=== PATIENT | female | born 1980 | race Caucasian/White ===

== ENCOUNTER → 2017-01-11 | Outpatient (REF) | payer OTHER | LOC: M SFHCWAGY 16:05 | PROVIDERS: ATTEND Nurse Practitioner Family | DX: Z12.4 Encounter for screening for malignant neoplasm of cervix (principal) ==

== ENCOUNTER → 2017-09-20 | Outpatient (REF) | payer BC ==
[2017-09-20 14:30] LABS: BASO # 0.1 10^3/uL (0.0-0.2); BASO % 0.9 % (0.0-1.0); EOS # 0.4 10^3/uL (0.0-0.50); EOS % 7.1 % (0.0-3.0); IMMATURE GRANULOCYTE % 0.2 % (0-0); LYMPH # 1.7 10^3/uL (1.5-4.5); LYMPH % 32.6 % (24.0-44.0); MEAN CORPUSCULAR HEMOGLOBIN 29.4 pg (27.0-33.0); MEAN CORPUSCULAR HGB CONC 33.5 g/dl (32.0-36.5); MEAN CORPUSCULAR VOLUME 87.7 fl (80.0-96.0); MONO # 0.4 10^3/uL (0.0-0.8); MONO % 8.2 % (0.0-5.0); NEUTROPHILS # 2.7 10^3/uL (1.8-7.7); PLATELET COUNT, AUTOMATED 306 10^3/uL (150-450); WHITE BLOOD COUNT 5.3 10^3/uL (4.0-10.0)
[2017-09-20 14:47] LABS: ALBUMIN 3.5 GM/DL (3.2-5.2); ALBUMIN/GLOBULIN RATIO 1.17 (1.00-1.93); ALKALINE PHOSPHATASE 47 U/L (45-117); ALT/SGPT 25 U/L (12-78); ANION GAP 8 MEQ/L (8-16); AST/SGOT 17 U/L (7-37); BILIRUBIN,TOTAL 0.4 MG/DL (0.2-1.0); BLOOD UREA NITROGEN 13 MG/DL (7-18); CALCIUM LEVEL 8.6 MG/DL (8.5-10.1); CARBON DIOXIDE LEVEL 25 MEQ/L (21-32); CHLORIDE LEVEL 104 MEQ/L (98-107); CHOLESTEROL LEVEL 249 MG/DL (<200); GLOMERULAR FILTRATION RATE > 60.0 (>60); GLUCOSE, FASTING 88 MG/DL (70-105); POTASSIUM SERUM 4.7 MEQ/L (3.5-5.1); SODIUM LEVEL 137 MEQ/L (136-145); TOTAL PROTEIN 6.5 GM/DL (6.4-8.2); TRIGLYCERIDES LEVEL 64 MG/DL (<150)
== END ==
LOC: M LABDRAW1 08:12
PROVIDERS: ATTEND Family Medicine
DX: Z00.00 Encounter for general adult medical examination without abnormal findings (principal)

== ENCOUNTER → 2018-05-13 | Outpatient (REF) | payer BC ==
[2018-05-13 13:55] LABS: CHLAMYDIA DNA AMPLIFICATION NEGATIVE (NEGATIVE); GC DNA AMPLIFICATION NEGATIVE (NEGATIVE)
== END ==
LOC: M SFHCWAGY 11:39
DX: Z11.3 Encounter for screening for infections with a predominantly sexual mode of transmission (principal)
CPT/HCPCS: 87591

== ENCOUNTER → 2018-05-13 | Outpatient (REF) | payer BC ==
[2018-05-17 15:28] LABS: HPV HYBRID CAPTURE II Negative (Negative)
== END ==
LOC: M SFHCWAGY 08:59
DX: Z12.4 Encounter for screening for malignant neoplasm of cervix (principal)

== ENCOUNTER → 2018-09-16 | Outpatient (REF) | payer BC ==
[2018-09-16 13:05] LABS: BASO % 0.6 % (0.0-1.0); EOS # 0.2 10^3/uL (0.0-0.50); EOS % 3.4 % (0.0-3.0); HEMATOCRIT 41.3 % (36.0-47.0); HEMOGLOBIN 13.7 g/dl (12.0-15.5); IMMATURE GRANULOCYTE % 0.2 % (0-3.0); LYMPH # 1.9 10^3/uL (1.5-4.5); LYMPH % 29.7 % (24.0-44.0); MEAN CORPUSCULAR HEMOGLOBIN 29.7 pg (27.0-33.0); MEAN CORPUSCULAR HGB CONC 33.2 g/dl (32.0-36.5); MEAN CORPUSCULAR VOLUME 89.6 fl (80.0-96.0); MONO # 0.6 10^3/uL (0.0-0.8); NEUTROPHILS # 3.6 10^3/uL (1.8-7.7); NEUTROPHILS % 57.1 % (36.0-66.0); PLATELET COUNT, AUTOMATED 318 10^3/uL (150-450); RED BLOOD COUNT 4.61 10^6/uL (4.00-5.40); RED CELL DISTRIBUTION WIDTH 11.8 % (11.5-14.5); WHITE BLOOD COUNT 6.2 10^3/uL (4.0-10.0)
[2018-09-16 13:42] LABS: CONTROL LINE MONO RF C INT CTR LINE PRESENT; MONO REFLEX EBV COMP NEGATIVE (NEGATIVE)
[2018-09-18 00:08] LABS: EBV VIRAL CAPSID AG IgM <36.0 U/mL (0.0-35.9)
== END ==
LOC: M LABDRWAD 12:38
DX: R59.0 Localized enlarged lymph nodes (principal)
CPT/HCPCS: 86665

== ENCOUNTER → 2020-11-09 | Outpatient (REF) | payer BC ==
[2020-11-09 16:45] LABS: HEMATOCRIT 38.5 % (36.0-47.0); MEAN CORPUSCULAR HGB CONC 33.8 g/dl (32.0-36.5); MEAN CORPUSCULAR VOLUME 88.9 fl (80.0-96.0); PLATELET COUNT, AUTOMATED 279 10^3/uL (150-450); RED BLOOD COUNT 4.33 10^6/uL (4.00-5.40)
[2020-11-09 18:06] LABS: HCG, SERUM QUANTITATIVE 134033 MIU/ML; HEPATITIS B SURFACE ANTIGEN NEGATIVE (NEGATIVE); HEPATITIS C VIRUS ABY INDEX 0.1 INDEX (<0.8); HIV 1&2 SCREEN CENTAUR NEGATIVE (NEGATIVE)
== END ==
LOC: M LAB REF 16:25
PROVIDERS: ATTEND Obstetrics & Gynecology
DX: Z32.01 Encounter for pregnancy test, result positive (principal)

== ENCOUNTER → 2020-11-17 | Outpatient (CLI) | payer BC ==
--- NOTE | 2020-11-17 16:08 | REP ---
INDICATION: DATING AND VIABILITY COMPARISON: None. TECHNIQUE: Transabdominal 1st trimester obstetrical ultrasound with color Doppler evaluation. FINDINGS: Single live early intrauterine is appreciated. Gestational sac with yolk sac and pole identified. Colton-rump length of 23 mm corresponds to 9 weeks 0 days gestational age with estimated date of delivery 06/22/2021. heart rate equals 172 beats per minute. Maternal ovaries demonstrate left corpus luteum cyst. IMPRESSION: Single live early intrauterine at 9 weeks 0 days gestational age. Complete anatomical assessment should be performed and 19-20 weeks. <Electronically signed by Foreign Mcdermott > 11/17/20 [id number]
== END ==
LOC: M PLAIMG 13:33
PROVIDERS: ATTEND Obstetrics & Gynecology
DX: O36.80X0 Pregnancy with inconclusive fetal viability, not applicable or unspecified (principal); Z3A.09 9 weeks gestation of pregnancy

== ENCOUNTER → 2021-02-06 | Outpatient (CLI) | payer BC ==
--- NOTE | 2021-02-06 16:53 | REP ---
INDICATION: ANATOMY. COMPARISON: Comparison study 17 November 2020.. TECHNIQUE: Transabdominal obstetric sonography. FINDINGS: Scanning through the gravid uterus demonstrates a viable single intrauterine gestation in cephalic lie. motion is observed and heart rate is recorded at 149 beats per minute. A anterior placenta is seen, grade 1, without evidence of placenta previa. Closed cervical length is measured at 3.5 cm transabdominally. No extrauterine abnormality is observed. Amniotic fluid is subjectively normal. The following anatomic structures are identified felt to be unremarkable: cranium and intracranial anatomy, facial profile, left ventricular cardiac outflow tract view, diaphragm, left-sided stomach, abdominal wall cord insertion, bilateral kidneys, urinary bladder, spine, upper and lower extremities, three-vessel cord. nose and lips, four-chamber heart, and right ventricular outflow tract views were less than optimally visualized due to position.. Biometry chart: BPD 4.7 cm, 20 weeks 0 days Head circumference 17.5 cm, 20 weeks 0 days Abdominal circumference 15.5 cm, 20 weeks 5 days Femur length 3.7 cm, 21 weeks 4 days Humeral length 3.3 cm, 21 weeks 1 day HC AC ratio normal 1.13 Cephalic index normal 0.73 Estimated weight 388 g, 0 lb 13 oz greater than 97th percentile for 19 weeks 6 days IMPRESSION: Viable single intrauterine gestation at 20 weeks 5 days by today's composite sonographic criteria. HERMELINDO by today's sonography June 21, 2021. No complication identified. Expected gestational age estimate based on prior sonography 19 weeks 6 days, HERMELINDO by prior sonography June 27, 2021. heart views and nose and lips visualization less than optimally achieved. <Electronically signed by Albert Tatum > 02/06/21 [id number]
== END ==
LOC: M WHC 09:00
PROVIDERS: ATTEND Obstetrics & Gynecology
DX: Z36.89 Encounter for other specified antenatal screening (principal); Z3A.20 20 weeks gestation of pregnancy

== ENCOUNTER → 2021-03-27 | Outpatient (CLI) | payer BC ==
[2021-03-27 11:45] LABS: HEMATOCRIT 33.7 % (36.0-47.0); HEMOGLOBIN 11.6 g/dl (12.0-15.5); MEAN CORPUSCULAR HEMOGLOBIN 31.5 pg (27.0-33.0); MEAN CORPUSCULAR HGB CONC 34.4 g/dl (32.0-36.5); MEAN CORPUSCULAR VOLUME 91.6 fl (80.0-96.0); PLATELET COUNT, AUTOMATED 204 10^3/uL (150-450); RED BLOOD COUNT 3.68 10^6/uL (4.00-5.40); WHITE BLOOD COUNT 14.1 10^3/uL (4.0-10.0)
== END ==
LOC: M LAB 09:50
PROVIDERS: ATTEND Obstetrics & Gynecology
DX: Z34.02 Encounter for supervision of normal first pregnancy, second trimester (principal)
CPT/HCPCS: 36415; 82950; 85027; 86850; 86901; J2790

== ENCOUNTER → 2021-05-23 | Outpatient (REF) | payer BC | LOC: M LAB REF 16:37 | PROVIDERS: ATTEND Obstetrics & Gynecology | DX: Z34.03 Encounter for supervision of normal first pregnancy, third trimester (principal); Z3A.00 Weeks of gestation of pregnancy not specified ==

== ENCOUNTER 2021-06-15 05:12 | Inpatient (IN) | payer BC ==
[2021-06-15] VITALS (34 sets, daily range): BP systolic 87–172; BP diastolic 48–97
[~2021-06-15] VITALS: Ht 154.9 cm; Wt 94.3 kg
[2021-06-15] MEDS ORDERED: PENICILLIN G POTASSIUM IV 5 MU in D5W MINI-BAG PLUS 100 ML IV STA (05:53)
[2021-06-15] MEDS ORDERED: LIDOCAINE 1% MDV 20ML VIAL INFIL PRN (05:55)
[2021-06-15] MEDS ORDERED: OXYTOCIN INJ 10 UNITS/ML VIAL (J2590) IM PRN (05:55)
[2021-06-15] MEDS ORDERED: METHYLERGONOVINE MALEATE 0.2 MG/ML VIAL (J2210) IM PRN (05:55)
[2021-06-15] MEDS ORDERED: OXYTOCIN DRIP 30 UNITS in IV 1 EA IV PRN (05:55)
[2021-06-15] MEDS: LR 1,000 ML IV SCH ×2 (06:30→19:35)
--- NOTE | 2021-06-15 06:41 | HPE ---
HISTORY AND PHYSICAL DATE OF ADMISSION: 06/15/2021 HISTORY OF PRESENT ILLNESS: Doris is a 41-year-old 1 para 0 at 39 weeks gestation, EDC of 06/22/2021 based on first trimester ultrasound. She presents to Labor and Delivery today with report of uncomfortable contractions that started at 1999 on 06/14/2021, progressively had become closer together and more uncomfortable. She does report some scant bloody show, denies leakage of fluid and the fetus has been active. Her care was initiated at [facility] in the first trimester. Her course was complicated by advanced maternal age. OBSTETRIC HISTORY: Primigravida. OBSTETRIC LABS: AB negative, antibody screen negative, rubella immune, VDRL non-reactive. Urine culture showed no growth. Hepatitis surface antigen negative, HIV negative, hepatitis C antibody nonreactive. Pap smear was normal. Gonorrhea and chlamydia negative. Gestational diabetic screening normal at 42. GBS is positive. It does not appear she had any NIPT done related to advanced maternal age. PAST MEDICAL HISTORY: Anxiety. PAST SURGICAL HISTORY: Diaphragmatic hernia repair. FAMILY HISTORY: Noncontributory. SOCIAL HISTORY: She is . The father of the baby is at bedside. She is a nonsmoker. Denies alcohol and drug use. No history of any sexually transmitted infections. She denies a history of abuse, physical, sexual or emotional. ALLERGIES: No known drug allergies. CURRENT MEDICATIONS: 1. Sertraline 50 mg daily. 2. vitamin. OBJECTIVE: Temperature 98.4, pulse 78, respirations 18, BP 129/79. She is alert and oriented x3. She does appear moderately uncomfortable with her contractions. She is deep breathing. heart rate is 150 with moderate variability, positive accelerations, negative decelerations. Contractions every three minutes, they do palpate moderate. Her abdomen is gravid, cephalic presentation. Estimated weight is 8 pounds. Sterile vaginal exam: 3 cm dilated, 90% effaced, -2 station. ASSESSMENT: Intrauterine at 39 weeks, heart rate category 1, active labor. PLAN: Admit the patient to Labor and Delivery, out of bed ad jemima, regular diet at this time. The patient desires to cope with her labor physiologically at this point but will likely consider an epidural when she is more uncomfortable. Routine laboratories have been ordered, out of bed ad jemima. She has been verbally consented for emergency surgery and blood products if they are necessary. I do anticipate active labor continued and a spontaneous vaginal delivery.
[2021-06-15 06:59] LABS: HEMATOCRIT 33.8 % (36.0-47.0); HEMOGLOBIN 11.7 g/dl (12.0-15.5); MEAN CORPUSCULAR HGB CONC 34.6 g/dl (32.0-36.5); MEAN CORPUSCULAR VOLUME 89.7 fl (80.0-96.0); PLATELET COUNT, AUTOMATED 160 10^3/uL (150-450); RED BLOOD COUNT 3.77 10^6/uL (4.00-5.40); WHITE BLOOD COUNT 15.5 10^3/uL (4.0-10.0)
[2021-06-15] MEDS: PENICILLIN G POTASSIUM IV 2.5 MU in IV 1 EA IV SCH ×3 (10:51→19:35)
--- NOTE | 2021-06-15 12:51 | IPNPDOC ---
Text Note Date of Service The patient was seen on 06/15/21. NOTE Intrapartum Note I assumed care of Doris this morning at 0730. In brief, she is a 41yo with SIUP at term presenting in active labor early this morning. Ctx started last nig ht. She has been laboring without pain meds this morning, has been in the tub a couple of times. Coping well with ctx but interested in getting epidural soon potentially. Vitals: normotensive to occasional mild range bp's, afebrile Abdomen: soft/gravid Cat I FHRT with bl 140's, +accels, -decels, mod nere[place]: ctx q4-5min SCE: 5/80/-2, soft/mid. AROM performed with thick meconium noted. Plan to continue expectant management for now Epidural as desired Close observation Dr. Galloway notified of presence of meconium Safe to proceed Светлана Pace MD VS,David, I+O VS, David I+O Laboratory Tests 06/15/21 06:30 Vital Signs Date Time Temp Pulse Resp B/P (MAP) Pulse Ox O2 Delivery O2 Flow Rate FiO2 06/15/21 12:12 98.1 75 20 144/66 (92) Room Air Светлана Pace MD Jun 15, 2021 12:51
[2021-06-15] MEDS ORDERED: FENTANYL 2MCG/ML ROPIVACAINE 0.2% IN 0.9% NACL 100ML IVBAG As Ordered ONE (13:46)
[2021-06-15] MEDS: FENTANYL/ROPIVACAINE/NACL BAG 100 ML EPIDURAL SCH (13:54)
[2021-06-15] MEDS ORDERED: NALOXONE INJ 0.4MG/1ML VIAL (J2310 PER 1MG) IV PRN (14:25)
[2021-06-15] MEDS ORDERED: REFRIGERATOR IV KEYS XX PRN (14:25)
[2021-06-15] MEDS ORDERED: ONDANSETRON 4MG/2ML VIAL IV PRN (14:25)
[2021-06-15] MEDS ORDERED: EPIDURAL COMMENT XX SCH (14:25)
[2021-06-15] MEDS ORDERED: EPIDURAL/PCA KEYS XX PRN (14:25)
[2021-06-15] MEDS ORDERED: LACTATED RINGER'S 1000 ML IV PRN (14:25)
[2021-06-15] MEDS ORDERED: diphenhydrAMINE 50MG/ML VIAL (J1200) IV PRN (14:25)
[2021-06-15] MEDS: ePHEDrine SULFATE 25 MG/5 ML(5MG/ML) SYRINGE IV PRN ×2 (15:34→18:09)
[2021-06-15] MEDS ORDERED: BICITRA 30ML SOLN UDC PO ONE (15:45)
[2021-06-15] MEDS ORDERED: CALCIUM CARBONATE 500 MG CHEW U/D PO PRN (15:45)
--- NOTE | 2021-06-15 17:33 | IPNPDOC ---
Text Note Date of Service The patient was seen on 06/15/21. NOTE Intrapartum Note Pt doing well. Pain controlled with epidural. Has had new bloody show Vitals: normotensive, afebrile Cat I FHRT with bl 130's, +accels, -decels, mod nereida [place]: ctx q3-4min SCE: 8/80/-1, soft/mid. Plan to continue expectant management Close observation Recheck in 2-4hr or earlier as indicated Safe to proceed Светлана Pace MD VS,Dvaid, I+O VSDavid I+O Laboratory Tests 06/15/21 06:30 Vital Signs Date Time Temp Pulse Resp B/P (MAP) Pulse Ox O2 Delivery O2 Flow Rate FiO2 06/15/21 16:46 108 105/59 (74) 06/15/21 15:08 98.6 18 06/15/21 12:12 Room Air Светлана Pace MD Jun 15, 2021 17:33
[2021-06-15] MEDS ORDERED: OXYTOCIN DRIP 30 UNITS in IV 1 EA IV SCH ×2 (18:20→23:20)
--- NOTE | 2021-06-15 23:19 | DNPDOC ---
[facility] Delivery Note Delivery Note DATE OF DELIVERY: 06/15/21 PREDELIVERY DIAGNOSIS: 39w0d gestation and labor. POST DELIVERY DIAGNOSIS: Delivered. PROCEDURE: Spontaneous vaginal delivery [employer] REPRESENTATIVE: Dr. Светлана Pace MD ANESTHESIA: epidural ESTIMATED BLOOD LOSS: 300 mL. FINDINGS: 8 pound 0 ounce (3630g) female , Score 7/9 DELIVERY SUMMARY: Doris is a 41yo [id number] s/p uncomplicated at 39w0d when presenting with labor, delivering at 2228 on 06/18/21. She was 4cm on presentation. She had AROM with meconium noted. Received an epidural. She slowly progressed over time to C/ C/0 with pitocin augmentation, and then began pushing. Eventually head delivered OA, restituted KATHY. Right anterior shoulder delivered followed by posterior shoulder and corpus. vigorous, placed on maternal abdomen, apgars 7/9. Given that infant did not immediately have a lusty cry, cord was clamped x2 and cut by FOB and was taken to warmer by the nurse. With fu ndal massage and traction on cord, placenta delivered spontaneously with centrally inserted 3 vessel umbilical cord. Pitocin bolused via IV and more uterine massage performed, fundus noted firm at u-2cm. 0.2mg methergine given IM for prophylaxis against bleeding since patient had been laboring for >24hr and maternal age. Inspection of perineum and vagina revealed a small 2mll and s mall/superficial bilateral labial abrasions which were repaired in routine fashion. Excellent reapproximation and total hemostasis noted. All counts correct x2. Mom and infant were doing well when I left the room. MD Katelynn Francisco Katrina D MD Jun 15, 2021 23:19
[2021-06-15] MEDS ORDERED: MEASLES,MUMPS,RUBELLA VACCINE INJ (MMR-II) (90707) SC SCH (23:20)
[2021-06-15] MEDS ORDERED: RHOGAM 300 MCG (1500 IU) INJ (J2790) IM SCH (23:20)
[2021-06-15] MEDS ORDERED: IBUPROFEN 600MG TAB PO PRN (23:20)
[2021-06-15] MEDS ORDERED: DIBUCAINE 1% OINTMENT 30GM TOP PRN (23:20)
[2021-06-15] MEDS ORDERED: ACETAMINOPHEN TAB 650MG DOSE (2X325MG) PO PRN (23:20)
[2021-06-16] MEDS: IBUPROFEN 800 MG TAB PO PRN ×2 (00:46→18:40)
[2021-06-16] MEDS: DOCUSATE SODIUM 100MG CAPSULE PO PRN ×2 (00:46→22:39)
[2021-06-16 01:15] VITALS: BP 147/75
[2021-06-16] MEDS: FENTANYL/ROPIVACAINE/NACL BAG 100 ML EPIDURAL SCH (05:08)
[2021-06-16 06:00] VITALS: BP 121/70
--- NOTE | 2021-06-16 06:14 | IPNPDOC ---
Progress Note Date of Service: Jun 16, 2021 Day#: 1 Progress Note PPD 1 SUBJECT: Doris is a 41yo [id number] s/p uncomplicated at 39w0d when presenting with labor, delivering at 2228 on 06/18/21, doing well day # 1. She has been ambulating, voiding spontaneously without issue and tolerating regular diet. Breast feeding without issue. Reports lochia is like a normal period. OBJECTIVE: VITAL SIGNS: Within normal limits, afebrile. Alert and oriented times three. Abdomen: Fundus firm at U-2. Soft, NTTP. Extremities: no pain with palpation of calves ASSESSMENT: Doris is a 41yo [id number] s/p uncomplicated at 39w0d when presenting with labor, delivering at 2228 on 06/18/21, doing well day # 1. Vitals within normal limits, afebrile, hemodynamically stable with no evidence of infection. PLAN: 1. Routine care 2. Tylenol and Motrin for pain. 3. Encourage breast feeding and ambulation. 4. Regular diet 5. Vitals q4hr 6. Possible discharge tomorrow if meeting all milestones Светлана Pace MD VS, [facility]&O, [facility]/I&O Vital Signs Date Time Temp Pulse Resp B/P (MAP) Pulse Ox O2 Delivery O2 Flow Rate FiO2 06/16/21 06:00 97.9 83 16 121/70 (87) 97 Room Air I&O- Last 24 Hours up to 6 AM 06/16/21 06:00 Intake Total 600 ml Output Total 2200 ml Balance -1600 ml Laboratory Data 24H LABS Laboratory Tests 2 06/15/21 06:30: Nucleated Red Blood Cells % (auto) 0.0, Syphilis Serology NONREACTIVE CBC/BMP Laboratory Tests 06/15/21 06:30 Светлана Pace MD Jun 16, 2021 06:14
[2021-06-16] MEDS: PRENATAL VITAMINS CHEWABLE TABLET PO SCH (08:15)
[2021-06-16 18:49] VITALS: BP 113/62
[2021-06-16] MEDS: ACETAMINOPHEN 500 MG TAB PO PRN (22:40)
[2021-06-17] MEDS: IBUPROFEN 800 MG TAB PO PRN (05:41)
[2021-06-17 06:22] VITALS: BP 134/89
[2021-06-17] MEDS: PRENATAL VITAMINS CHEWABLE TABLET PO SCH (08:30)
[2021-06-17] MEDS: ACETAMINOPHEN 500 MG TAB PO PRN (08:30)
== END 2021-06-17 12:00 | disposition home or self-care (01) | DRG 560 ==
LOC: M LDO 05:12 → M LDI 05:53 → M OBS 06-16 00:34
PROVIDERS: ADMIT Advanced Practice Midwife; ATTEND Advanced Practice Midwife
PROC: 10E0XZZ Delivery of Products of Conception, External Approach (ICD-10-PCS; principal; 2021-06-15)
PROC: 0KQM0ZZ Repair Perineum Muscle, Open Approach (ICD-10-PCS; 2021-06-15)
PROC: 10907ZC Drainage of Amniotic Fluid, Therapeutic from Products of Conception, Via Natural or Artificial Opening (ICD-10-PCS; 2021-06-15)
PROC: 0HQ9XZZ Repair Perineum Skin, External Approach (ICD-10-PCS; 2021-06-15)
DX: O77.0 Labor and delivery complicated by meconium in amniotic fluid (principal); Z3A.39 39 weeks gestation of pregnancy; Z37.0 Single live birth; O70.1 Second degree perineal laceration during delivery; O70.0 First degree perineal laceration during delivery; O99.824 Streptococcus B carrier state complicating childbirth

== ENCOUNTER → 2022-04-18 | Outpatient (CLI) | payer BC ==
[2022-04-18 13:43] LABS: BASO # 0.1 10^3/uL (0.0-0.2); BASO % 0.3 % (0.0-1.0); EOS % 0.1 % (0.0-3.0); HEMATOCRIT 43.5 % (36.0-47.0); HEMOGLOBIN 14.5 g/dl (12.0-15.5); LYMPH # 2.3 10^3/uL (1.5-5.0); LYMPH % 10.3 % (24.0-44.0); MEAN CORPUSCULAR HEMOGLOBIN 29.2 pg (27.0-33.0); MEAN CORPUSCULAR HGB CONC 33.3 g/dl (32.0-36.5); MEAN CORPUSCULAR VOLUME 87.7 fl (80.0-96.0); MONO % 7.9 % (2.0-8.0); NEUTROPHILS # 17.6 10^3/uL (1.5-8.5); NEUTROPHILS % 80.8 % (36.0-66.0); PLATELET COUNT, AUTOMATED 359 10^3/uL (150-450); RED BLOOD COUNT 4.96 10^6/uL (4.00-5.40); WHITE BLOOD COUNT 21.8 10^3/uL (4.0-10.0)
[2022-04-18 14:14] LABS: MONO # 1.7 10^3/uL (0.0-0.8)
[2022-04-18 14:27] LABS: ALBUMIN 3.9 GM/DL (3.2-5.2); ALT/SGPT 29 U/L (12-78); BILIRUBIN,TOTAL 0.6 MG/DL (0.2-1.0); BLOOD UREA NITROGEN 12 MG/DL (7-18); CALCIUM LEVEL 9.2 MG/DL (8.5-10.1); CARBON DIOXIDE LEVEL 27 MEQ/L (21-32); CHLORIDE LEVEL 104 MEQ/L (98-107); CREATININE FOR GFR 1.02 MG/DL (0.55-1.30); GLOMERULAR FILTRATION RATE > 60.0 (>58); GLUCOSE, FASTING 108 MG/DL (70-100); SODIUM LEVEL 136 MEQ/L (136-145); TOTAL PROTEIN 7.5 GM/DL (6.4-8.2)
== END ==
LOC: M PLALAB 11:22
PROVIDERS: ATTEND Nurse Practitioner Family
DX: R11.10 Vomiting, unspecified (principal)

== ENCOUNTER 2022-04-20 09:04 | Emergency (ER) | payer BC ==
[~2022-04-20] VITALS: Ht 154.9 cm; Wt 81.8 kg
[2022-04-20] MEDS ORDERED: SERT50TA29 (09:14)
[2022-04-20] MEDS ORDERED: NS 1,000 ML IV ONE (10:05)
[2022-04-20 10:34] LABS: BASO # 0.1 10^3/uL (0.0-0.2); BASO % 0.7 % (0.0-1.0); EOS # 0.2 10^3/uL (0.0-0.5); EOS % 1.5 % (0.0-3.0); HEMATOCRIT 39.7 % (36.0-47.0); HEMOGLOBIN 13.8 g/dl (12.0-15.5); LYMPH # 2.6 10^3/uL (1.5-5.0); LYMPH % 18.3 % (24.0-44.0); MEAN CORPUSCULAR HEMOGLOBIN 30.2 pg (27.0-33.0); MEAN CORPUSCULAR HGB CONC 34.8 g/dl (32.0-36.5); MEAN CORPUSCULAR VOLUME 86.9 fl (80.0-96.0); MONO % 7.2 % (2.0-8.0); NEUTROPHILS # 10.3 10^3/uL (1.5-8.5); PLATELET COUNT, AUTOMATED 290 10^3/uL (150-450); RED BLOOD COUNT 4.57 10^6/uL (4.00-5.40); WHITE BLOOD COUNT 14.4 10^3/uL (4.0-10.0)
[2022-04-20 10:46] LABS: INR 0.92; PARTIAL THROMBOPLASTIN TIME 25.8 SECONDS (25.9-37.0); PROTHROMBIN TIME 12.8 SECONDS (12.7-14.5)
[2022-04-20 11:16] LABS: ALBUMIN 3.4 GM/DL (3.2-5.2); ALT/SGPT 21 U/L (12-78); BILIRUBIN,DIRECT 0.1 MG/DL (0.0-0.2); BILIRUBIN,TOTAL 0.6 MG/DL (0.2-1.0); BLOOD UREA NITROGEN 9 MG/DL (7-18); CALCIUM LEVEL 8.6 MG/DL (8.5-10.1); CARBON DIOXIDE LEVEL 24 MEQ/L (21-32); CHLORIDE LEVEL 107 MEQ/L (98-107); GLOMERULAR FILTRATION RATE > 60.0 (>58); GLUCOSE, FASTING 77 MG/DL (70-100); LIPASE 101 U/L (73-393); POTASSIUM SERUM 3.8 MEQ/L (3.5-5.1); SODIUM LEVEL 138 MEQ/L (136-145)
[2022-04-20] MEDS ORDERED: ISOVUE-370 76% 100ML VIAL As Ordered ONE (11:47)
[2022-04-20 13:27] VITALS: BP 108/66
== END 2022-04-20 13:41 | disposition home or self-care (01) ==
LOC: M ED 09:04
DX: A09 Infectious gastroenteritis and colitis, unspecified (principal); K44.9 Diaphragmatic hernia without obstruction or gangrene
CPT/HCPCS: 74177; 80048; 80076; 83690; 84702; 85025; 85610; 85730; 86850; 86900; 86901; 96360; 96361; 99284; Q9967

== ENCOUNTER → 2022-04-26 | Outpatient (REF) | payer BC ==
[~2022-04-26] MED LIST: SERT50TA29
== END ==
LOC: M LAB REF 15:44
PROVIDERS: ATTEND Physician Assistant Medical
DX: R19.7 Diarrhea, unspecified (principal)

== ENCOUNTER → 2022-06-08 | Outpatient (REF) | payer BC | LOC: M SFHCDERM 16:54 | PROVIDERS: ATTEND Dermatology | DX: D23.71 Other benign neoplasm of skin of right lower limb, including hip (principal) ==

== ENCOUNTER → 2023-02-21 | Outpatient (CLI) | payer BC ==
[2023-02-21 14:58] LABS: BASO # 0.1 10^3/uL (0.0-0.2); BASO % 0.8 % (0.0-1.0); EOS # 0.4 10^3/uL (0.0-0.5); EOS % 4.4 % (0.0-3.0); HEMATOCRIT 42.8 % (36.0-47.0); HEMOGLOBIN 13.9 g/dl (12.0-15.5); LYMPH # 2.2 10^3/uL (1.5-5.0); LYMPH % 27.4 % (24.0-44.0); MEAN CORPUSCULAR HGB CONC 32.5 g/dl (32.0-36.5); MEAN CORPUSCULAR VOLUME 89.2 fl (80.0-96.0); MONO # 0.6 10^3/uL (0.0-0.8); MONO % 7.6 % (2.0-8.0); NEUTROPHILS # 4.7 10^3/uL (1.5-8.5); NEUTROPHILS % 59.4 % (36.0-66.0); PLATELET COUNT, AUTOMATED 304 10^3/uL (150-450); WHITE BLOOD COUNT 7.9 10^3/uL (4.0-10.0)
[2023-02-21 15:02] LABS: ALBUMIN 3.9 G/DL (3.2-5.2); ALKALINE PHOSPHATASE 74 U/L (46-116); ALT/SGPT 24 U/L (7.0-40); AST/SGOT 13 U/L (<34); BILIRUBIN,TOTAL 0.5 MG/DL (0.3-1.2); BLOOD UREA NITROGEN 12 MG/DL (9-23); CALCIUM LEVEL 8.9 MG/DL (8.5-10.1); CARBON DIOXIDE LEVEL 27 MMOL/L (20-31); CHLORIDE LEVEL 104 MMOL/L (98-107); CHOLESTEROL LEVEL 261 MG/DL (<200); CHOLESTEROL RISK RATIO 4.52 (<5); CREATININE FOR GFR 0.82 MG/DL (0.55-1.30); GLOMERULAR FILTRATION RATE > 60.0 (>58); GLUCOSE, FASTING 92 MG/DL (60-100); HDL CHOLESTEROL 57.7 MG/DL (>40); LDL CHOLESTEROL 185.3 MG/DL (<100); NON-HDL-C 203.3 MG/DL; POTASSIUM SERUM 4.3 MMOL/L (3.5-5.1); SODIUM LEVEL 137 MMOL/L (136-145); TOTAL PROTEIN 6.7 G/DL (5.7-8.2); TRIGLYCERIDES LEVEL 90 MG/DL (<150)
[2023-02-21 15:04] LABS: THYROID STIMULATING HORMONE 2.295 uIU/ML (0.55-4.78)
[2023-02-21 15:05] LABS: FREE T4 0.73 NG/DL (0.89-1.76)
== END ==
LOC: M WUC 08:57
PROVIDERS: ATTEND Nurse Practitioner Family
DX: Z00.00 Encounter for general adult medical examination without abnormal findings (principal); E66.9 Obesity, unspecified

== ENCOUNTER → 2023-02-27 | Outpatient (REF) | payer BC ==
[2023-02-27 13:12] LABS: APPEARANCE, URINE CLOUDY (CLEAR); BACTERIA, URINE AUTO 1+ (NEGATIVE); BILIRUBIN, URINE AUTO NEGATIVE (NEGATIVE); BLOOD, URINE BLOOD 3+ (NEGATIVE); COLOR, URINE AMBER (YELLOW); GLUCOSE, URINE (UA) AUTO NEGATIVE (NEGATIVE); KETONE, URINE AUTO TRACE mg/dL (NEGATIVE); LEUKOCYTE ESTERASE, URINE AUTO 1+ (NEGATIVE); MUCUS, URINE SMALL (NEGATIVE); NITRITE, URINE AUTO NEGATIVE (NEGATIVE); PROTEIN, URINE AUTO 2+ mg/dL (NEGATIVE); RBC, URINE AUTO TNTC /HPF (0-3); SPECIFIC GRAVITY URINE AUTO 1.026 (1.002-1.035); SQUAMOUS EPITHELIAL CELL UR AU 8 /HPF (0-6); TRANSITIONAL EPITHELIAL AUTO 3 /HPF; UROBILINOGEN, URINE AUTO 0.2 mg/dL (0.0-2.0); WBC, URINE AUTO 79 /HPF (0-3)
== END ==
LOC: M LAB REF 12:21
PROVIDERS: ATTEND Physician Assistant
DX: N39.0 Urinary tract infection, site not specified (principal)

== ENCOUNTER → 2023-05-21 | Outpatient (REF) | payer BC | LOC: M SFHCWAGY 17:25 | PROVIDERS: ATTEND Nurse Practitioner Family | DX: Z12.4 Encounter for screening for malignant neoplasm of cervix (principal); R87.615 Unsatisfactory cytologic smear of cervix; R87.618 Other abnormal cytological findings on specimens from cervix uteri ==

== ENCOUNTER → 2023-06-12 | Outpatient (REF) | payer BC | LOC: M SFHCWAGY 13:12 | PROVIDERS: ATTEND Nurse Practitioner Family | DX: R87.610 Atypical squamous cells of undetermined significance on cytologic smear of cervix (ASC-US) (principal); Z12.4 Encounter for screening for malignant neoplasm of cervix; R87.615 Unsatisfactory cytologic smear of cervix ==

== ENCOUNTER → 2023-10-11 | Outpatient (CLI) | payer BC | LOC: M WHC 10:20 | PROVIDERS: ATTEND Nurse Practitioner Family | DX: Z12.31 Encounter for screening mammogram for malignant neoplasm of breast (principal) ==

== ENCOUNTER → 2023-10-17 | Outpatient (CLI) | payer BC | LOC: M WHC 09:03 | PROVIDERS: ATTEND Nurse Practitioner Family | DX: R92.8 Other abnormal and inconclusive findings on diagnostic imaging of breast (principal); N63.11 Unspecified lump in the right breast, upper outer quadrant ==

== ENCOUNTER 2023-11-15 06:14 | Day surgery (SDC) | payer BC ==
[~2023-11-15] VITALS: Ht 154.9 cm; Wt 88.1 kg
[~2023-11-15 06:14] MED LIST changes: +LR 1,000 ML IV SCH; -SERT50TA29; +SERT50TA29 PO
[2023-11-15] MEDS ORDERED: LR 1,000 ML IV SCH ×2 (06:45→08:45)
[2023-11-15] MEDS ORDERED: KETOROLAC 60MG 2ML VIAL As Ordered ONE (06:56)
[2023-11-15] MEDS ORDERED: ONDANSETRON 4MG 2ML VIAL As Ordered ONE (06:56)
[2023-11-15] MEDS ORDERED: propofoL 200 MG/20 ML VIAL As Ordered ONE (06:57)
[2023-11-15] MEDS ORDERED: SUGAMMADEX SODIUM 500 MG/5 ML VIAL (BRIDION) As Ordered ONE (06:57)
[2023-11-15] MEDS ORDERED: ROCURONIUM BROMIDE 50MG/5ML VIAL As Ordered ONE (06:57)
[2023-11-15] MEDS ORDERED: LIDOCAINE 2% 100MG/5ML SDV (FOR ANES.) As Ordered ONE (06:57)
[2023-11-15 07:02] LABS: HEMATOCRIT 40.7 % (36.0-47.0); HEMOGLOBIN 13.8 g/dl (12.0-15.5); MEAN CORPUSCULAR HEMOGLOBIN 29.7 pg (27.0-33.0); MEAN CORPUSCULAR HGB CONC 33.9 g/dl (32.0-36.5); MEAN CORPUSCULAR VOLUME 87.5 fl (80.0-96.0); PLATELET COUNT, AUTOMATED 286 10^3/uL (150-450); RED BLOOD COUNT 4.65 10^6/uL (4.00-5.40); WHITE BLOOD COUNT 6.6 10^3/uL (4.0-10.0)
[2023-11-15] MEDS ORDERED: MIDAZOLAM INJ 2MG/2ML VIAL As Ordered ONE (07:04)
[2023-11-15] MEDS ORDERED: fentaNYL 100 MCG/2 ML INJECTION As Ordered ONE (07:04)
[2023-11-15 07:10] LABS: HCG, SERUM QUALITATIVE NEGATIVE (NEGATIVE)
[2023-11-15] MEDS ORDERED: ACETAMINOPHEN 1000MG 100ML IV BAG As Ordered ONE (07:53)
[2023-11-15] MEDS ORDERED: ONDANSETRON 4MG 2ML VIAL IV PRN (08:45)
[2023-11-15] MEDS ORDERED: fentaNYL 100 MCG/2 ML INJECTION IV PRN (08:45)
[2023-11-15] MEDS ORDERED: HYDROMORPHONE HCL 0.5 MG/ 0.5 ML SYRINGE IV PRN (08:45)
[2023-11-15] MEDS ORDERED: oxyCODONE 5MG TAB PO PRN (08:45)
[2023-11-15] MEDS ORDERED: IBUP80TA PO (08:48)
[2023-11-15] MEDS ORDERED: PERC5TAB12 PO (08:49)
[2023-11-15] MEDS ORDERED: COLA100C5 PO (08:50)
[2023-11-15 11:09] VITALS: BP 105/60; TEMP 97.2; O2SAT 98
== END 2023-11-15 11:05 | disposition home or self-care (01) ==
LOC: M SDC 06:14
PROVIDERS: ATTEND Obstetrics & Gynecology
DX: Z30.2 Encounter for sterilization (principal); Z88.0 Allergy status to penicillin; Z91.040 Latex allergy status; F41.9 Anxiety disorder, unspecified; F32.A Depression, unspecified; Z79.899 Other long term (current) drug therapy
CPT/HCPCS: 36415; 58661; 84703; 85027; 86850; 86900; 86901; 88302; J0131; J0665; J1100; J1885; J2250; J2405; J3010

== ENCOUNTER 2023-11-24 09:00 | Emergency (ER) | payer BC ==
[~2023-11-24] VITALS: Ht 154.9 cm; Wt 89.8 kg
[~2023-11-24 09:00] MED LIST changes: +COLA100C5 PO; +IBUP80TA PO; -LR 1,000 ML IV SCH; +PERC5TAB12 PO
[2023-11-24] MEDS ORDERED: METH4PACK PO (09:08)
[2023-11-24] MEDS ORDERED: FLUC150T9 (09:09)
[2023-11-24] MEDS ORDERED: FAMOTIDINE 20MG/2ML VIAL IVP ONE (09:25)
[2023-11-24] MEDS ORDERED: methylPREDNISolone 125MG 2ML VIAL IV ONE (09:25)
[2023-11-24] MEDS ORDERED: PRED20TA PO (09:43)
[2023-11-24] MEDS ORDERED: PEPC1TAB5 PO (09:45)
[2023-11-24 10:08] VITALS: BP 109/69; TEMP 97.6; O2SAT 97
== END 2023-11-24 10:15 | disposition home or self-care (01) ==
LOC: M ED 09:00
DX: T78.40XA Allergy, unspecified, initial encounter (principal); F41.9 Anxiety disorder, unspecified; F32.A Depression, unspecified; Z88.1 Allergy status to other antibiotic agents; Z91.040 Latex allergy status; Z79.52 Long term (current) use of systemic steroids; Z79.899 Other long term (current) drug therapy
CPT/HCPCS: 96374; 99284; J2930; S0028

== ENCOUNTER → 2025-03-22 | Outpatient (CLI) | payer BC ==
[~2025-03-22] MED LIST changes: +FLUC150T9; +METH4PACK PO; +PEPC1TAB5 PO; +PRED20TA PO
[2025-03-22 12:35] LABS: BASO # 0.1 10^3/uL (0.0-0.2); BASO % 0.6 % (0.0-1.0); EOS # 0.5 10^3/uL (0.0-0.5); EOS % 6.2 % (0.0-3.0); HEMATOCRIT 43.6 % (36.0-47.0); HEMOGLOBIN 14.4 g/dl (12.0-15.5); LYMPH # 2.3 10^3/uL (1.5-5.0); LYMPH % 29.4 % (24.0-44.0); MEAN CORPUSCULAR HEMOGLOBIN 28.9 pg (27.0-33.0); MEAN CORPUSCULAR VOLUME 87.4 fl (80.0-96.0); MONO # 0.7 10^3/uL (0.0-0.8); MONO % 8.9 % (2.0-8.0); NEUTROPHILS # 4.3 10^3/uL (1.5-8.5); NEUTROPHILS % 54.6 % (36.0-66.0); PLATELET COUNT, AUTOMATED 317 10^3/uL (150-450); RED BLOOD COUNT 4.99 10^6/uL (4.00-5.40); WHITE BLOOD COUNT 7.8 10^3/uL (4.0-10.0)
[2025-03-22 13:04] LABS: ALBUMIN 3.9 G/DL (3.2-5.2); ALKALINE PHOSPHATASE 70 U/L (35-104); ALT/SGPT 20 U/L (7.0-40); AST/SGOT 16 U/L (<34); BILIRUBIN,TOTAL 0.5 MG/DL (0.3-1.2); BLOOD UREA NITROGEN 14 MG/DL (9-23); CALCIUM LEVEL 8.9 MG/DL (8.5-10.1); CARBON DIOXIDE LEVEL 27 MMOL/L (20-31); CHLORIDE LEVEL 105 MMOL/L (98-107); CHOLESTEROL LEVEL 260 MG/DL (<200); CHOLESTEROL RISK RATIO 4.45 (<5); GLOMERULAR FILTRATION RATE > 90.0 (>58); GLUCOSE, FASTING 88 MG/DL (60-100); HDL CHOLESTEROL 58.3 MG/DL (>40); LDL CHOLESTEROL 182.9 MG/DL (<100); NON-HDL-C 201.7 MG/DL; POTASSIUM SERUM 4.6 MMOL/L (3.5-5.1); SODIUM LEVEL 139 MMOL/L (136-145); TOTAL PROTEIN 7.1 G/DL (5.7-8.2); TRIGLYCERIDES LEVEL 94 MG/DL (<150)
[2025-03-22 13:05] LABS: THYROID STIMULATING HORMONE 3.573 uIU/ML (0.55-4.78)
== END ==
LOC: M WUC 08:43
PROVIDERS: ATTEND Family Medicine
DX: Z00.00 Encounter for general adult medical examination without abnormal findings (principal); G47.9 Sleep disorder, unspecified